=== PATIENT | female | born 1950 | race African-American/Black ===

== ENCOUNTER → 2017-06-08 | Outpatient (CLI) | payer OTHER, BC ==
[~2017-06-08] MED LIST: ASPIRIN EC81 M1 PO; CELLCEPT500 MG PO; CITRACAL + D C1 EACH PO; DIOVAN HCT 1601 EAC1 PO; DUONEB 2.5-0.5 M3 ML INH; FOSAMAX 70 MG T70 M1 PO; FUROSEMIDE 40 M40 M1 PO; LEVOTHYROXIN0.025 MG PO; LOVASTAT40 PO; MULTIVITAMINS PO; PHENOBARBITAL32.4 M2 PO; POTASSIUM PO; PREDNISONE 2.52.5 MG PO; PRILOSEC40 MG PO; TEGRETOL XR200 MG PO; TOPROL XL100 MG PO; VENTOLIN HFA INH8 GM INH; VITAMIN D1000 UNI1 PO
== END ==
LOC: CAT 10:42
DX: R91.1 Solitary pulmonary nodule (principal)

== ENCOUNTER → 2017-12-23 | Outpatient (CLI) | payer OTHER, BC | LOC: RAD 13:07 | DX: M95.4 Acquired deformity of chest and rib (principal); N64.4 Mastodynia; M41.85 Other forms of scoliosis, thoracolumbar region ==

== ENCOUNTER → 2020-03-21 | Outpatient (CLI) | payer OTHER, BC | LOC: CAT 09:48 | PROVIDERS: ATTEND Internal Medicine | DX: M51.34 Other intervertebral disc degeneration, thoracic region (principal); J84.10 Pulmonary fibrosis, unspecified; R91.8 Other nonspecific abnormal finding of lung field; I25.10 Atherosclerotic heart disease of native coronary artery without angina pectoris; M41.84 Other forms of scoliosis, thoracic region; M47.814 Spondylosis without myelopathy or radiculopathy, thoracic region; Z90.49 Acquired absence of other specified parts of digestive tract ==